=== PATIENT | female | born 1980 | race Two or more races ===

== ENCOUNTER 2023-01-23 15:44 | Emergency (ER) | payer OTHER ==
[~2023-01-23] VITALS: Ht 167.6 cm; Wt 83.9 kg
[2023-01-23 16:57] LABS: HEMATOCRIT 38.5 % (36.0-45.00); HEMOGLOBIN 12.8 g/dL (12.0-15.00); MEAN CELL VOLUME 87.6 fL (80.00-100.00); MEAN CORPUSCULAR HEMOGLOBIN 29.2 pg (27.00-32.0); MEAN CORPUSCULAR HGB CONC 33.3 g/dl (32.0-36.0); PLATELET COUNT 241 K/uL (150-450); RED CELL DISTRIBUTION WIDTH 13.3 % (11.5-14.5)
[2023-01-23 16:57] LABS: PH,URINE 7.5 (5.0-8.0); URINE APPEARANCE Clear; URINE BILIRRUBIN Negative (NEGATIVE); URINE BLOOD Small; URINE COLOR Yellow; URINE GLUCOSE Negative (NEGATIVE); URINE LEUKOCYTE Negative; URINE NITRATE Negative; URINE PROTEIN Negative (NEGATIVE)
[2023-01-23 16:58] LABS: URINE BACTERIA 997.8 uL (0.0-1933); URINE EPITHELIAL CELLS 17.3 uL (0.0-38.8); URINE RBC 11.9 uL (0.0-20.8); URINE WBC 3.2 uL (0.0-23.2)
[2023-01-23 17:15] LABS: CALCIUM 8.5 mg/dL (8.5-10.1); CREATININE SERUM 0.72 mg/dL (0.55-1.02); GFR 89.26; POTASSIUM 3.94 mEq/L (3.5-5.1)
== END 2023-01-23 18:22 | disposition home or self-care (01) ==
LOC: ER 15:44
PROVIDERS: General Practice
DX: R53.81 Other malaise (principal); R42 Dizziness and giddiness